=== PATIENT | female | born 1975 ===

== ENCOUNTER 2016-08-08 17:58 | Emergency (ER) | payer MEDICAID ==
[2016-08-08 18:05] VITALS: BP 171/97; PULSE 68; RESP 18; TEMP 97.8; O2SAT 100
== END 2016-08-08 19:19 | disposition left against medical advice (07) ==
LOC: C.ER 17:58
DX: Z02.89 Encounter for other administrative examinations (principal); M79.673 Pain in unspecified foot

== ENCOUNTER 2017-02-15 08:40 | Emergency (ER) | payer MEDICAID ==
[2017-02-15 08:40] VITALS: BMI 25.3
[2017-02-15 08:49] VITALS: TEMP 99; O2SAT 100
[2017-02-15] MEDS ORDERED: Lactated Ringer's 1,000 ML IV STA ×2 (09:05→11:58)
[2017-02-15] MEDS ORDERED: Lactated Ringer's 1,000 ML ONE ×2 (09:35→12:15)
[2017-02-15 09:44] LABS: BASO % 0.8 % (0.0-2.0); EOS % 0.2 % (0.0-4.0); HEMATOCRIT 33.1 % (34.0-47.0); LYMPH # 0.6 K/uL (1.0-4.3); LYMPH % 22.8 % (20.0-40.0); MEAN CORPUSCULAR HEMOGLOBIN 31.2 pg (27.0-31.0); MEAN CORPUSCULAR HGB CONC 35.1 g/dL (33.0-37.0); MEAN PLATELET VOLUME 7.3 fL (7.2-11.7); MONO # 0.1 K/uL (0.0-0.8); MONO % 5.3 % (0.0-10.0)
[2017-02-15 09:50] LABS: WHITE BLOOD COUNT 2.5 K/uL (4.8-10.8)
[2017-02-15 09:56] LABS: RBC URINE 5 /hpf (0-3); URINE BACTERIA RARE (<OCC); URINE BILIRUBIN NEGATIVE (NEGATIVE); URINE BLOOD 1+ (NEGATIVE); URINE COLOR Yellow (YELLOW); URINE GLUCOSE (UA) NORMAL (Normal); URINE KETONE NEGATIVE (NEGATIVE); URINE LEUKOCYTE ESTERASE NEG Leu/uL (Negative); URINE PROTEIN NEGATIVE (NEGATIVE); URINE UROBILINOGEN NORMAL mg/dL (0.2-1.0); WBC URINE 2 /hpf (0-5)
[2017-02-15 09:58] LABS: ALB/GLOB RATIO 0.8 (1.0-2.1); ALKALINE PHOSPHATASE 94 U/L (38-126); ALT/SGPT 141 U/L (9-52); AST/SGOT 212 U/L (14-36); BILIRUBIN,TOTAL 0.7 mg/dL (0.2-1.3); BLOOD UREA NITROGEN 9 mg/dL (7-17); CALCIUM 7.9 mg/dl (8.6-10.4); CARBON DIOXIDE 34 mmol/L (22-30); CHLORIDE 96 mmol/L (98-107); GFR AFRICAN-AMERICAN > 60; GLUCOSE,RANDOM 112 mg/dL (65-105); POTASSIUM 3.6 mmol/L (3.6-5.2); SODIUM 134 mmol/L (132-148); TOTAL PROTEIN 7.7 g/dL (6.3-8.3)
[2017-02-15] MEDS ORDERED: Iohexol 240 (50 ml) PO ONE (10:02)
[2017-02-15 10:30] VITALS: BP 121/78; PULSE 83; RESP 18
[2017-02-15] MEDS ORDERED: Iohexol 240 (50 ml) ONE (10:30)
[2017-02-15] MEDS ORDERED: Morphine 4 MG/ML VIAL IV STA (11:42)
[2017-02-15] MEDS ORDERED: Morphine 4 MG/ML VIAL ONE (11:54)
[2017-02-15] MEDS ORDERED: Iodixanol 320 MG/ML 100 ML BOTTLE IV ONE (11:58)
--- NOTE | 2017-02-15 12:50 | C.PDOC ---
History Of Present Illness 42 year old female presents to the ED for evaluation of generalized body aches for the past several days. Patient also reports vomit and diarrhea for 4 days. Patient reports she went to her PMD 1 week ago and was prescribed Augmentin for otitis media, soon after taking the Augmentin she states the diarrhea started. Patient reports she stopped taking Augmentin 3 days ago. Patient denies dysuria , hematuria, back pain, blood in stool, recent travel, change in diet, known sick contacts. Time Seen by Provider: 02/15/17 08:52 Chief Complaint (Nursing): Flu-like Symptoms History Per: Patient History/Exam Limitations: no limitations Onset/Duration Of Symptoms: Days Current Symptoms Are (Timing): Still Present Location Of Pain: Diffuse Myalgias Sick Contacts (Context): None Associated Symptoms: Vomiting, Diarrhea Ear Symptoms: Bilateral: None Severity: None Recent travel outside of the [place]: No Additional History Per: Patient Past Medical History Reviewed: Historical Data, Nursing Documentation, Vital Signs Vital Signs: Last Vital Signs Temp 99 F 02/15/17 08:45 Pulse 83 02/15/17 10:30 Resp 18 02/15/17 10:30 BP 121/78 02/15/17 10:30 Pulse Ox 100 02/15/17 13:59 - Medical History PMH: HTN, Multiple Sclerosis Denies: Chronic Kidney Disease Surgical History: No Surg Hx Family History: States: Unknown Family Hx - Social History Hx Alcohol Use: No Hx Substance Use: No - Immunization History Hx Tetanus Toxoid Vaccination: No Hx Influenza Vaccination: Yes Hx Pneumococcal Vaccination: No Review Of Systems Constitutional: Positive for: Weakness. Negative for: Fever, Chills Cardiovascular: Negative for: Chest Pain, Palpitations Respiratory: Negative for: Cough, Shortness of Breath Gastrointestinal: Positive for: Vomiting, Diarrhea. Negative for: Abdominal Pain Genitourinary: Negative for: Dysuria, Hematuria Musculoskeletal: Negative for: Back Pain Skin: Negative for: Rash Neurological: Negative for: Weakness, Numbness Physical Exam - Physical Exam Appears: Non-toxic, No Acute Distress Skin: Normal Color, Warm, Dry Head: Atraumatic, Normacephalic Ear(s): Left: Normal, Right: TM Dull (erythema), Other (otitis media) Nose: No Discharge Oral Mucosa: Moist Neck: Normal ROM, Supple Chest: Symmetrical Cardiovascular: Rhythm Regular, No Murmur Respiratory: Normal Breath Sounds, No Rales, No Rhonchi, No Wheezing Gastrointestinal/Abdominal: Soft, Tenderness (diffuse ), No Guarding, No Rebound Extremity: Normal ROM, No Pedal Edema, No Calf Tenderness, No Deformity, No Swelling Neurological/Psych: Oriented x3, Normal Speech, Normal Cognition ED Course And Treatment - Laboratory Results Result Diagrams: 02/15/17 09:38 02/15/17 09:38 O2 Sat by Pulse Oximetry: 100 (On RA) Pulse Ox Interpretation: Normal - CT Scan/US CT abd/pelvis Other Rad Studies (CT/US): Read By Radiologist, Radiology Report Reviewed CT/US Interpretation: FINDINGS: LOWER THORAX: Unremarkable. LIVER: Unremarkable. No gross lesion or ductal dilatation. GALLBLADDER AND BILE DUCTS : Unremarkable. PANCREAS: Unremarkable. No gross lesion or ductal dilatation. SPLEEN: Unremarkable. ADRENALS: Unremarkable. No mass. KIDNEYS AND URETERS: Unremarkable. No hydronephrosis. No solid mass. VASCULATURE: Unremarkable. No aortic aneurysm. BOWEL: Unremarkable. No obstruction. No gross mural thickening. APPENDIX: Normal appendix. PERITONEUM: No ascites or pneumoperitoneum. There is an umbilical hernia containing only mesenteric fat. LYMPH NODES: There are multiple mildly enlarged retroperitoneal lymph nodes. There is an at least 1 enlarged lymph node in the bailey hepatis region. There is mild pelvic lymphadenopathy. There are mildly enlarged lymph nodes within the small bowel mesenteric. The findings are nonspecific. Consider lymphoproliferative disorder or viral adenitis. Follow-up advised. BLADDER: Unremarkable. REPRODUCTIVE: Unremarkable uterus. BONES: No acute fracture. OTHER FINDINGS: Incidentally noted varices in the right lower anterior abdominal wall extending into the right labia majora. IMPRESSION: Mild retroperitoneal, pelvic and mesenteric lymphadenopathy. Nonspecific finding. Consider lymphoproliferative disorder or labral adenitis. Followup advised. Additional minor findings as above. US abdomen Other Rad Studies (CT/US): Read By Radiologist, Radiology Report Reviewed CT/US Interpretation: FINDINGS: LIVER: Measures 16.9 cm in sagittal dimension and appears unremarkable. No focal hepatic mass identified. The main portal vein appears patent with normal directional flow. No intrahepatic bile duct dilatation. GALLBLADDER: No gallstones. No gallbladder wall thickening. Negative sonographic Rocha's sign as assessed by the zipper trimmer hand. COMMON BILE DUCT: Measures 4 mm. PANCREAS: Not well visualized. RIGHT KIDNEY: Measures 11.2 x 4.6 x 5.1 cm. No obstructing calculus or hydronephrosis identified. LEFT KIDNEY: Measures 10.6 x 5.3 x 5.3 cm. No obstructing calculus or hydronephrosis identified. SPLEEN: Measures approximately 10.9 cm. AORTA: Limited views appear unremarkable. IVC: Limited views appear unremarkable. OTHER FINDINGS: 1.0 x 0.6 x 1.6 cm lymph node evident adjacent to the pancreas. IMPRESSION: 1.0 x 0.6 x 1.6 cm lymph node evident adjacent to the pancreas. Medical Decision Making Medical Decision Making: Impression generalized body aches along with vomit and diarrhea Plan: * CT abd/pelvis * US abdomen * IV fluids * Toradol 30 mg IVP * Morphine 4 mg IVP * Zofran 4 mg IVP * Urine culture * UA * Influenza A B test Disposition - Disposition Referrals: Yina Abernathy [Staff Provider] - Disposition: HOME/ ROUTINE Disposition Time: 13:15 Condition: IMPROVED Additional Instructions: Thank you for letting us take care of you today. The emergency medical care you received today was directed at your acute symptoms. If you were prescribed any medication, please fill it and take as directed. It may take several days for your symptoms to resolve. Return to the Emergency Department if your symptoms worsen, do not improve, or if you have any other problems. Please contact your doctor or call one of the physicians/clinics you have been referred to that are listed on the Patient Visit Information form that is included in your discharge packet. Bring any paperwork you were given at discharge with you along with any medications you are taking to your follow up visit. Our treatment cannot replace ongoing medical care by a primary care provider (PCP) outside of the emergency department. Thank you for allowing the [facility] team to be part of your care today. Continue to stay hydrated throughout the day. Follow up with Dr. Abernathy in 2-3 days for outpatient management and further evaluation. Prescriptions: Azithromycin [Zithromax] 250 mg PO DAILY #6 tab Omeprazole Magnesium [Prilosec Otc] 20 mg PO DAILY #14 tablet. Ondansetron ODT [Zofran ODT] 4 mg PO Q8 PRN #15 odt PRN Reason: Nausea/Vomiting Ranitidine HCl [Zantac] 150 mg PO BID #20 tablet Instructions: Dehydration (ED), Acute Nausea and Vomiting (ED) Forms: [employer] (Indonesian) - Clinical Impression Clinical Impression: Viral syndrome - Scribe Statement The provider has reviewed the documentation as recorded by the Scribe Man Downing All medical record entries made by the Scribe were at my direction and personally dictated by me. I have reviewed the chart and agree that the record accurately reflects my personal performance of the history, physical exam, medical decision making, and the department course for this patient. I have also personally directed, reviewed, and agree with the discharge instructions and disposition.
--- NOTE | 2017-02-15 13:16 | CT ---
PROCEDURE: CT Abdomen and Pelvis with contrast HISTORY: diffuse abdominal pain COMPARISON: 03/04/2016 TECHNIQUE: Contrast dose: 100 mL Visipaque 320 Radiation dose: Total exam DLP = 501.18 mGy-cm. This CT exam was performed using one or more of the following dose reduction techniques: Automated exposure control, adjustment of the mA and/or kV according to patient size, and/or use of iterative reconstruction technique. FINDINGS: LOWER THORAX: Unremarkable. LIVER: Unremarkable. No gross lesion or ductal dilatation. GALLBLADDER AND BILE DUCTS: Unremarkable. PANCREAS: Unremarkable. No gross lesion or ductal dilatation. SPLEEN: Unremarkable. ADRENALS: Unremarkable. No mass. KIDNEYS AND URETERS: Unremarkable. No hydronephrosis. No solid mass. VASCULATURE: Unremarkable. No aortic aneurysm. BOWEL: Unremarkable. No obstruction. No gross mural thickening. APPENDIX: Normal appendix. PERITONEUM: No ascites or pneumoperitoneum. There is an umbilical hernia containing only mesenteric fat. LYMPH NODES: There are multiple mildly enlarged retroperitoneal lymph nodes. There is an at least 1 enlarged lymph node in the bailey hepatis region. There is mild pelvic lymphadenopathy. There are mildly enlarged lymph nodes within the small bowel mesenteric. The findings are nonspecific. Consider lymphoproliferative disorder or viral adenitis. Follow-up advised. BLADDER: Unremarkable. REPRODUCTIVE: Unremarkable uterus BONES: No acute fracture. OTHER FINDINGS: Incidentally noted varices in the right lower anterior abdominal wall extending into the right labia majora. IMPRESSION: Mild retroperitoneal, pelvic and mesenteric lymphadenopathy. Nonspecific finding. Consider lymphoproliferative disorder or labral adenitis. Followup advised. Additional minor findings as above.
--- NOTE | 2017-02-15 13:53 | US ---
HISTORY: elevated LFT's COMPARISON: None available. TECHNIQUE: Sonographic evaluation of the abdomen. FINDINGS: LIVER: Measures 16.9 cm in sagittal dimension and appears unremarkable. No focal hepatic mass identified. The main portal vein appears patent with normal directional flow. No intrahepatic bile duct dilatation. GALLBLADDER: No gallstones. No gallbladder wall thickening. Negative sonographic Rocha's sign as assessed by the community health nurse. COMMON BILE DUCT: Measures 4 mm. PANCREAS: Not well visualized. RIGHT KIDNEY: Measures 11.2 x 4.6 x 5.1 cm. No obstructing calculus or hydronephrosis identified. LEFT KIDNEY: Measures 10.6 x 5.3 x 5.3 cm. No obstructing calculus or hydronephrosis identified. SPLEEN: Measures approximately 10.9 cm. AORTA: Limited views appear unremarkable. IVC: Limited views appear unremarkable. OTHER FINDINGS: 1.0 x 0.6 x 1.6 cm lymph node evident adjacent to the pancreas. IMPRESSION: 1.0 x 0.6 x 1.6 cm lymph node evident adjacent to the pancreas.
== END 2017-02-15 15:37 | disposition home or self-care (01) ==
LOC: C.ER 08:40
DX: B34.9 Viral infection, unspecified (principal); G35 Multiple sclerosis; I10 Essential (primary) hypertension
CPT/HCPCS: 74177; 76700; 80053; 81001; 83690; 84703; 85025; 87086; 87804; 96361; 96374; 96375; 99284; J1885; J2270; J2405; J7120; Q9966; Q9967